=== PATIENT | female | born 1995 | race Caucasian/White ===

== ENCOUNTER 2017-02-20 21:43 | Emergency (ER) | payer SELFPAY ==
[~2017-02-20] VITALS: Ht 162.6 cm; Wt 97.0 kg
[2017-02-20 21:54] VITALS: Ht 162.6 cm; Wt 97.0 kg
[2017-02-20] MEDS ORDERED: LIDOCAINE 2% (MDV) 20 ML INJ INJ ONE (23:30)
[2017-02-20] MEDS ORDERED: CEFTRIAXONE 1 GM INJ IM ONE (23:30)
[2017-02-20] MEDS ORDERED: CEPH-443 PO (23:30)
[2017-02-20] MEDS ORDERED: IBUP-1542 PO (23:31)
[2017-02-20] MEDS ORDERED: SULF1TAB31 PO (23:31)
--- NOTE | 2017-02-20 23:41 | ERD ---
ER Documentation Chief Complaint Chief Complaint abscess right lower abdomen HPI This is a 21-year-old female presents to the ER with a red and warm bump to her right lower abdomen that started 2 days ago. Patient states that area is very painful and earlier today there was some pus coming out of it. Patient does not have any fevers or chills. She does not have any cough or cold symptoms she does not have any nausea vomiting or diarrhea. ROS 12 point review of systems was done, all negative except per HPI. Medications Home Meds Active Scripts Ibuprofen* (Motrin*) 600 Mg Tab, 600 MG PO Q6, #30 TAB Prov:TONYMARIANGEL C 02/20/17 Sulfamethoxazole/Trimethoprim* (Bactrim Ds* Tablet) 1 Each Tablet, 1 TAB PO BID for 7 Days, #14 TAB Prov:TONY,MARIANGEL C 02/20/17 Cephalexin* (Keflex*) 500 Mg Capsule, 500 MG PO BID for 7 Days, CAP Prov:TONY,MARIANGEL C 02/20/17 Allergies Allergies: Coded Allergies: No Known Allergy (Unverified , 02/20/17) PMhx/Soc Medical and Surgical Hx: pt denies Medical Hx, pt denies Surgical Hx Hx Alcohol Use: No Hx Substance Use: No Hx Tobacco Use: No Smoking Status: Never smoker Physical Exam Vitals Vital Signs Date Time Temp Pulse Resp B/P Pulse Ox O2 Delivery O2 Flow Rate FiO2 02/20/17 21:54 98.4 107 20 136/66 97 Physical Exam GENERAL: The patient is well developed and appropriate for usual state of health , in no apparent distress. HEENT: Atraumatic. CHEST: Clear to auscultation bilaterally. There are no rales, wheezes or rhonchi. HEART: Regular rate and rhythm. No murmurs, clicks, rubs or gallops. ABDOMEN: Soft, nontender and nondistended. Good bowel sounds. No rebound or guarding. No gross peritonitis. No gross organomegaly or masses. No Aly sign or McBurney point tenderness. NEURO: Alert and oriented. SKIN: Patient has an indurated area of erythema and warmth to the touch right lower abdomen which is about 5 cm x 6 cm. Results 24 hrs Current Medications Medications (Trade) Dose Ordered Sig/Nuvia Route PRN Reason Start Time Stop Time Status Last Admin Dose Admin Ceftriaxone Sodium (Rocephin) 1 gm ONCE ONCE IM 02/20/17 23:30 02/20/17 23:31 DC 02/20/17 23:30 Lidocaine (Xylocaine 2% (Mdv) 20 ml) 20 ml ONCE ONCE INJ 02/20/17 23:30 02/20/17 23:31 DC 02/20/17 23:30 Procedures/MDM This is a 21-year-old female presents to the ER with an abscess, patient does have surrounding erythema likely cellulitis. Patient will be sent home with Keflex and with Bactrim. At this time I&D is not indicated as area is not fluctuant. Patient was also given a shot of Rocephin in the ER without any complications. She did follow-up with her PCP within 1-2 days return to ER sooner if symptoms worsen. My medical decision making sure with the patient she understands and agrees with plan Departure Diagnosis: Primary Impression: Cellulitis Condition: Stable Patient Instructions: Cellulitis Additional Instructions: Call your primary care doctor TOMORROW for an appointment during the next 1-2 days.See the doctor sooner or return here if your condition worsens before your appointment time. MARIANGEL JIMENEZ Feb 20, 2017 23:41
[2017-02-20 23:54] VITALS: BP 127/68; PULSE 95; RESP 17; TEMP 97.8
== END 2017-02-20 23:54 | disposition home or self-care (01) ==
LOC: FTE 21:43 → EDBD 21:43 → FTE 23:54
DX: L03.311 Cellulitis of abdominal wall (principal)
CPT/HCPCS: 96372; 99284; J0696

== ENCOUNTER 2017-02-22 19:43 | Emergency (ER) | payer SELFPAY ==
[~2017-02-22] VITALS: Ht 162.6 cm; Wt 98.5 kg
[~2017-02-22 19:43] MED LIST: CEPH-443 PO; IBUP-1542 PO; SULF1TAB31 PO
[2017-02-22 19:46] VITALS: Ht 162.6 cm; Wt 98.5 kg
[2017-02-22] MEDS ORDERED: LIDOCAINE 1% (MDV) 20 ML INJ SC ONE (20:30)
--- NOTE | 2017-02-22 20:40 | ERD ---
ER Documentation Chief Complaint Chief Complaint wound check abd area, abscess on abd area HPI 21-year-old female presents to emergency department for complaints of a bump in the abdominal area, was diagnosed to have a soft tissue abscess in the lower abdomen, started on antibiotics 2 days ago, patient started taking Keflex and Bactrim at home, continues to have redness and swelling. Patient is complaining of pain throbbing pain, 6/10 scale, as was upon touching the area. Patient did not take any medications to help with symptoms. Patient denies any fever or chills. ROS All systems reviewed and are negative except as per history of present illness. Medications Home Meds Active Scripts Ibuprofen* (Motrin*) 600 Mg Tab, 600 MG PO Q6, #30 TAB Prov:TONY,MARIANGEL C 02/20/17 Sulfamethoxazole/Trimethoprim* (Bactrim Ds* Tablet) 1 Each Tablet, 1 TAB PO BID for 7 Days, #14 TAB Prov:TONYMARIANGEL C 02/20/17 Cephalexin* (Keflex*) 500 Mg Capsule, 500 MG PO BID for 7 Days, CAP Prov:TONYMARIANGEL C 02/20/17 Allergies Allergies: Coded Allergies: No Known Allergy (Unverified , 02/20/17) PMhx/Soc Medical and Surgical Hx: pt denies Medical Hx, pt denies Surgical Hx Hx Alcohol Use: No Hx Substance Use: No Hx Tobacco Use: No FmHx Family History: No coronary disease, No diabetes, No other Physical Exam Vitals Vital Signs Date Time Temp Pulse Resp B/P Pulse Ox O2 Delivery O2 Flow Rate FiO2 02/22/17 19:46 97.7 88 20 121/69 99 Physical Exam GENERAL: The patient is well developed and appropriate for usual state of health, in no apparent distress. CHEST: Clear to auscultation bilaterally. There are no rales, wheezes or rhonchi. HEART: Regular rate and rhythm. No murmurs, clicks, rubs or gallops. No S3 or S4. ABDOMEN: Soft, nontender and nondistended. Good bowel sounds. No rebound or guarding. No gross peritonitis. No gross organomegaly or masses. No Aly sign or McBurney point tenderness. BACK: No midline or flank tenderness. EXTREMITIES: Equal pulses bilaterally. There is no peripheral clubbing, cyanosis or edema. No focal swelling or erythema. Full range of motion. Grossly neurovascularly intact. NEURO: Alert and oriented. Cranial nerves 2-12 intact. Motor strength in all 4 extremities with 5/5 strength. Sensation grossly intact. Normal speech and gait. SKIN: Noted 3 cm diameter erythematous area, tender on palpation, fluctuant. There is no apparent rash or petechia. The skin is warm and dry. HEMATOLOGIC AND LYMPHATIC: There is no evidence of excessive bruising or lymphedema. No gross cervical, axillary, or inguinal lymphadenopathy. Results 24 hrs Current Medications Medications (Trade) Dose Ordered Sig/Nuvia Route PRN Reason Start Time Stop Time Status Last Admin Dose Admin Lidocaine (Xylocaine 1% (Mdv) 20 ml) 2 ml ONCE ONCE SC 02/22/17 20:30 02/22/17 20:31 DC Procedures/MDM Procedure Note: After obtaining informed consent, the wound was irrigated with 250 ml of normal saline and cleaned with diluted betadine. Using aseptic technique, 3 ml of 1% lidocaine was injected on the subcutaneous tissue of the abscess where the fluctuant area is at. After the anesthetic, a 2 cm incision was done in the middle of the fluctuant area of the abscess. Pustular discharge was drained from the abscess. The abscess wound was loosely packed with iodoform dressing. After the procedure, dry dressing was applied on the area. Patient tolerated procedure well. Decision making: Patient symptoms was likely is consistent with soft tissue abscess, this was drained, incision and drainage was done. Patient is already currently on antibiotics, was advised to continue taking it, patient was advised to return in 48 hours for recheck and wound dressing change. Patient was advised to return sooner for any worsening symptoms. Disposition: Home. Stable Departure Diagnosis: Primary Impression: Soft tissue abscess Condition: Stable Patient Instructions: Abscess, Incision And Drainage JYOTHI HATCH NP Feb 22, 2017 20:40
== END 2017-02-22 21:28 | disposition home or self-care (01) ==
LOC: FTE 19:43
DX: L02.211 Cutaneous abscess of abdominal wall (principal)

== ENCOUNTER 2017-02-24 09:02 | Emergency (ER) | payer SELFPAY ==
[~2017-02-24] VITALS: Ht 160 cm; Wt 99.5 kg
[2017-02-24 09:04] VITALS: Ht 160 cm; Wt 99.5 kg
--- NOTE | 2017-02-24 09:35 | ERD ---
ER Documentation Chief Complaint Chief Complaint wound check right lower abdomen (packing inplace) HPI This is a 21-year-old female who presents the emergency department today for a wound check on an abscess that she had drained a couple of days ago. Patient states that she is taking her antibiotics as prescribed. Denies any fevers or chills. ROS All systems reviewed and are negative except as per history of present illness. Medications Home Meds Active Scripts Ibuprofen* (Motrin*) 600 Mg Tab, 600 MG PO Q6, #30 TAB Prov:MARIANGEL JIMENEZ 02/20/17 Sulfamethoxazole/Trimethoprim* (Bactrim Ds* Tablet) 1 Each Tablet, 1 TAB PO BID for 7 Days, #14 TAB Prov:MARIANGEL JIMENEZ 02/20/17 Cephalexin* (Keflex*) 500 Mg Capsule, 500 MG PO BID for 7 Days, CAP Prov:TONY,MARIANGEL C 02/20/17 Allergies Allergies: Coded Allergies: No Known Allergy (Unverified , 02/24/17) PMhx/Soc Medical and Surgical Hx: pt denies Medical Hx, pt denies Surgical Hx Hx Alcohol Use: No Hx Substance Use: No Hx Tobacco Use: No Smoking Status: Never smoker Physical Exam Vitals Vital Signs Date Time Temp Pulse Resp B/P Pulse Ox O2 Delivery O2 Flow Rate FiO2 02/24/17 09:04 97.8 88 18 132/62 97 Physical Exam Const: obese, NAD Head: Atraumatic Eyes: Normal Conjunctiva ENT: Normal External Ears, Nose and Mouth. Neck: Full range of motion..~ No meningismus. Resp: Clear to auscultation bilaterally Cardio: Regular rate and rhythm, no murmurs Abd: Soft, non tender, non distended. Normal bowel sounds. Evidence of I&D incision right side abdomen on pannus. No erythema or warmth. No purulent drainage Skin: Evidence of I&D incision right side abdomen on pannus Back: No midline or flank tenderness Ext: No cyanosis, or edema Neur: Awake and alert Psych: Normal Mood and Affect Procedures/MDM This is a 21-year-old female who presents the emergency department today for wound check of an abscess she had drained a couple of days ago. Upon review of patient's medical records patient was seen here in the emergency department on February 20, 2017 was diagnosed with cellulitis. She was given antibiotics at that time. Patient return for a recheck on 22 February and had an incision and drainage at that time. Patient now returns in follow-up for a wound check. Wound packing was in place and wound packing was removed. The area of the abscess and drainage was fairly deep and therefore I did replace wound packing today. Patient was instructed to continue taking her antibiotics as prescribed. There is no erythema or warmth or purulent drainage. Low suspicion for sepsis, deep space tracking infection. She may return to the emergency department in 48 hours for another wound check and packing removal. Patient understood and agreed with the plan. She may continue take Tylenol or Motrin for pain. At this time the patient is stable for discharge and outpatient management. Patient should follow up with their PCP in the next 1-2 days. They may return to the emergency department sooner for any persistent or worsening of symptoms. Patient understood and agreed with the plan. Departure Diagnosis: Primary Impression: Encounter for wound re-check Condition: Fair Patient Instructions: Wound Care, Wound Packing Referrals: [facility] YOU HAVE RECEIVED A MEDICAL SCREENING EXAM AND THE RESULTS INDICATE THAT YOU DO NOT HAVE A CONDITION THAT REQUIRES URGENT TREATMENT IN THE EMERGENCY DEPARTMENT. FURTHER EVALUATION AND TREATMENT OF YOUR CONDITION CAN WAIT UNTIL YOU ARE SEEN IN YOUR DOCTORS OFFICE WITHIN THE NEXT 1-2 DAYS. IT IS YOUR RESPONSIBILITY TO MAKE AN APPOINTMENT FOR FOLOW-UP CARE. IF YOU HAVE A PRIMARY DOCTOR --you should call your primary doctor and schedule an appointment IF YOU DO NOT HAVE A PRIMARY DOCTOR YOU CAN CALL OUR PHYSICIAN REFERRAL HOTLINE AT IF YOU CAN NOT AFFORD TO SEE A PHYSICIAN YOU CAN CHOSE FROM THE FOLLOWING [facility] [address] [facility] [address] [facility]. [facility] [address] [facility] [address] [facility] [address] [facility]. [facility]. [address] Additional Instructions: Call your primary care doctor TOMORROW for an appointment during the next 1-2 days.See the doctor sooner or return here if your condition worsens before your appointment time. Keep wound clean and dry. Return in 48 hours for wound check and packing removal. Continue taking her antibiotics as prescribed. SALENA AL PA-C Feb 24, 2017 09:35
== END 2017-02-24 09:42 | disposition home or self-care (01) ==
LOC: FTE 09:02
DX: Z48.01 Encounter for change or removal of surgical wound dressing (principal)
CPT/HCPCS: 99281

== ENCOUNTER → 2018-02-20 | Outpatient (CLI) | END | disposition home or self-care (01) ==

== ENCOUNTER → 2018-02-24 | Outpatient (CLI) | END | disposition home or self-care (01) ==

== ENCOUNTER 2018-08-20 16:49 | Inpatient (IN) | payer MEDICAID ==
[~2018-08-20] VITALS: Ht 160 cm; Wt 111.5 kg
[2018-08-20 17:41] VITALS: Ht 160 cm; Wt 111.5 kg
[2018-08-20] MEDS ORDERED: LACTATED RINGER'S 1,000 ML IV PRN (18:23)
[2018-08-20] MEDS ORDERED: MINERAL OIL LIGHT 10 ML VIAL TOP PRN (18:30)
[2018-08-20] MEDS ORDERED: LIDOCAINE 1% (MPF) 30 ML INJ INJ PRN (18:30)
[2018-08-20] MEDS ORDERED: OXYTOCIN 30 UNITS/LR 500 ML IV PRN (18:30)
[2018-08-20] MEDS ORDERED: OXYTOCIN 30 UNITS/LR 500 ML IV SCH ×3 (18:30)
[2018-08-20] MEDS ORDERED: BUTORPHANOL 2 MG INJ IV PRN (18:30)
[2018-08-20] MEDS ORDERED: METHYLERGONOVINE 0.2 MG INJ IM PRN (18:30)
[2018-08-20] MEDS ORDERED: IBUPROFEN 600 MG TAB PO PRN (18:30)
[2018-08-20] MEDS ORDERED: MISOPROSTOL 200 MCG TAB PR PRN (18:30)
[2018-08-20] MEDS ORDERED: CARBOPROST 250 MCG INJ IM PRN (18:30)
[2018-08-20] MEDS: LACTATED RINGER'S 1,000 ML IV SCH ×2 (19:12→21:43)
--- NOTE | 2018-08-20 19:34 | TRIAGE ---
OB Triage Datetime Report Generated by CPN: 08/20/2018 19:33 Datetime: 08/20/2018 18:13 Decelerations: Variable Category: Category II Comments: Variable noted lasting 60 seconds with evangelist to 80 returning to baseline with moderate va riability Datetime: 08/20/2018 18:00 Labor Evaluation Frequency: OCC Monitor Mode: External Quality: Mild Pattern: Normal: <= 5 Contractions in 10 Minutes Resting Tone [place]: Relaxed Heart Rate FHR Baseline Rate: 155 Monitor Mode: External US FHR Baseline Changes: No Baseline Change Variability: Minimal - Undetectable to <=5 bpm Accelerations: 15X15 Decelerations: None Category: Category II Pain Assessment Pain Presence: None/Denies Datetime: 08/20/2018 17:05 Labor Evaluation Frequency: OCC Monitor Mode: External Quality: Mild Pattern: Normal: <= 5 Contractions in 10 Minutes Resting Tone [place]: Relaxed Heart Rate FHR Baseline Rate: 145 Monitor Mode: External US FHR Baseline Changes: No Baseline Change Variability: Minimal - Undetectable to <=5 bpm Accelerations: 15X15 Decelerations: None Category: Category II Pain Assessment Pain Presence: None/Denies Datetime: 08/20/2018 16:50 Stage of : OB Triage Assessment Type: Triage Maternal Assessment Level of Consciousness: Fully Conscious DTR's/Clonus: DTRs 2+; No Clonus Headache: Denies Blurred Vision: No Respiratory Effort: Unlabored; Regular Rhythm; Equal Expansion Breath Sounds, Left: Clear and Equal Breath Sounds, Right: Clear and Equal Nausea/Vomiting: Denies RUQ Epigastric Pain: Denies Lower Extremities Edema: Bilateral Lower Extremities Degree: 1+ Upper Extremities Edema: Bilateral Upper Extremities Degree: 1+ Facial Edema: None Fall Risk Assessment History of Falling: (0) No Secondary Diagnosis: (0) No Ambulatory Aid: (0) Bedrest/Nurse Assist IV Therapy: (0) No Gait: (0) Normal/Bedrest/Immobile Mental Status: (0) Oriented to Own Ability Fall Score: 0 Fall Risk Score Definition: No Risk: No action required Datetime: 08/20/2018 10:23 Time of Arrival: 08/20/2018 16:35 EGA: 37.6 Arrived By: Ambulatory Arrived From: Office Chief Complaint: r/o PIH Movement: Present Contractions: Denies/Absent Rupture of Membranes: Denies Vaginal Bleeding: Normal Show Vaginal Discharge: Denies Recent Sexual Intercouse: Denies Abdominal Trauma: Not Applicable Patient Complaints: None Time Provider Notified: 08/20/2018 18:17 Provider Notified: Doc Initial Plan: NST, BPP/EFW, PIH labs
[2018-08-20] MEDS ORDERED: TERBUTALINE 1 MG/ML INJ SC ONE (21:30)
[2018-08-21] MEDS: LACTATED RINGER'S 1,000 ML IV SCH ×2 (05:49→14:00)
--- NOTE | 2018-08-21 14:19 | HP ---
Date/Time of Note Date/Time of Note DATE: 08/21/18 TIME: 14:15 OB - History Hx of Present Free Text/Dictation 22-year-old female 2 para 0 AB 137+ weeks gestation admitted after observation of variable deceleration of heart tones Originally patient was sent in to rule out -induced hypertension which apparently was ruled out Last Menstrual Period: Oct 12, 2017 Estimated Due Date: September 04, 2018 : 2 Para: 0 Spontaneous : 1 Care: Good Care Ultrasounds: Normal mid trimester US Obstetrical Complications: None Medical Complications: None Past Family/Social History * Past Medical, Surgical, Family and Obstetric Histories reviewed from chart. Blood Type: O+ Rubella: immune RPR/VDRL: Negative GBS Status: Negative HBsAG: Negative OB Admission Exam Physical Exam HEENT: WNL Heart: Rhythm Normal Lungs: Clear, Equal Abdomen: WNL Extremities: Normal Reflexes: Normal Cervical Dilatation: Fingertip Effacement: 50% Station: -3 Membranes: Intact Accelerations: Accelerations Present Decelerations: No Decelerations Contractions on Admission: 6-10 Minutes Apart Date/Time Contractions Began: ? Frequency of Contractions: ? Duration: ? Last 72 hours Lab Results CBC & BMP 08/20/18 17:56 Liver Function Test 08/20/18 17:56 Alanine Aminotransferase (ALT/SGPT) 15 Albumin 3.5 Alkaline Phosphatase 176 H Aspartate Amino Transf (AST/SGOT) 20 Direct Bilirubin 0.00 Total Protein 6.7 OB Assessment/Plan Other Assessment: Term gestation Variable decelerations of heart tones Other plan: Originally patient was admitted for contraction stress test Upon reexamination patient appears to be 5 to 6 cm JADEN JENSEN MD Aug 21, 2018 14:19
[2018-08-21] MEDS ORDERED: KETOROLAC 30 MG INJ IM STA (16:24)
--- NOTE | 2018-08-21 16:47 | LDN ---
Date/Time of Note Date/Time of Note DATE: 08/21/18 TIME: 16:45 Delivery Summary Normal spontaneous vaginal delivery of viable infant over intact perineum Weeks of Gestation 38-week weeks Placenta Delivered: Spontaneously, Intact & Complete Meconium: none, Light Episiotomy: No Perineal laceration: 2 Laceration repair: Second-degree perineal laceration was repaired in layers using 2-0 Vicryl I&D for the years and 2 chromic on superficial the Anesthesia type: Local Estimated blood loss: 300 Sponge & Needle done & correct: Yes All needle counts correct: Yes Any foreign bodies felt in the: No Infant Delivery Information Sex Infant Sex: female Apgars 1 Minute: 9 5 Minute: 9 Suctioning Nose & mouth suctioned at aydin: Yes Delee suction performed: No Umbilical Cord Umbilical cord with: 3 Vessels Cord presentations: no nuchal cord Cord Blood was obtained: Yes Mother & Baby Disposition Disposition Mom & Baby to Maternity; Good: Yes (Mother and baby were recovered in good condition) Mom transferred to: Other (Maternity) Baby to NICU: No JADEN JENSEN MD Aug 21, 2018 16:47
[2018-08-21 18:15] VITALS: BP 147/79; PULSE 73; RESP 18
[2018-08-21] MEDS: LACTATED RINGER'S 1,000 ML IV* SCH ×2 (18:25→20:37)
[2018-08-21] MEDS ORDERED: MISOPROSTOL 200 MCG TAB PR PRN (18:30)
[2018-08-21] MEDS ORDERED: METHYLERGONOVINE 0.2 MG INJ IM PRN (18:30)
[2018-08-21] MEDS ORDERED: OXYTOCIN 30 UNITS/LR 500 ML IV PRN (18:30)
[2018-08-21] MEDS ORDERED: HYDROCODONE/APAP (5/325) TAB PO PRN (18:30)
[2018-08-21] MEDS ORDERED: ZOLPIDEM 5 MG TAB PO PRN (18:30)
[2018-08-21] MEDS ORDERED: BENZOCAINE 20% 56 ML SPRAY TOP PRN (18:30)
[2018-08-21] MEDS ORDERED: WITCH HAZEL/GLYCERIN PAD PR PRN (18:30)
[2018-08-21] MEDS ORDERED: LANOLIN HPA 1 PKT TOP PRN (18:30)
[2018-08-21] MEDS ORDERED: CARBOPROST 250 MCG INJ IM PRN (18:30)
[2018-08-21] MEDS ORDERED: DIBUCAINE 1% 30 GM OINT TOP PRN (18:30)
[2018-08-21 18:41] VITALS: BP 146/82; PULSE 72; RESP 18
[2018-08-21 19:45] VITALS: BP 138/79; PULSE 73; RESP 18
[2018-08-21] MEDS: MAGNESIUM HYDROXIDE 30ML CUP PO SCH (20:33)
[2018-08-21] MEDS: SENNA/DOCUSATE NA (8.6MG/50MG) TAB PO SCH (20:33)
[2018-08-21] MEDS: HYDROCODONE/APAP (5/325) TAB PO PRN (20:33)
[2018-08-21 23:28] VITALS: BP 131/78; PULSE 103; RESP 18
[2018-08-21] MEDS: IBUPROFEN 600 MG TAB PO SCH (23:29)
[2018-08-22 03:49] VITALS: BP 128/74; PULSE 102; RESP 18
[2018-08-22] MEDS: IBUPROFEN 600 MG TAB PO SCH ×3 (05:29→18:16)
[2018-08-22 09:00] VITALS: BP 128/72; PULSE 110; RESP 18
[2018-08-22] MEDS: MAGNESIUM HYDROXIDE 30ML CUP PO SCH ×2 (09:00→21:12)
[2018-08-22] MEDS: SENNA/DOCUSATE NA (8.6MG/50MG) TAB PO SCH ×2 (10:06→21:12)
[2018-08-22] MEDS: HYDROCODONE/APAP (5/325) TAB PO PRN ×2 (10:06→11:51)
--- NOTE | 2018-08-22 11:13 | DS ---
Date/Time of Note Date/Time of Note Home today or next day DATE: 08/22/18 TIME: 11:12 Obstetrical Discharge Record Final Diagnosis Final Diagnosis: Term delivered Other Final Diagnosis Status post vaginal delivery Vaginal Delivery Obstetrical Delivery: Spontaneous, Laceration, Repaired Complications Augmentation: Yes Condition on Discharge Physical Assessment Last Vitals: See nurse's notes Voiding: Yes Bowel Movement: Yes Breast: Soft, non-tender, Filling Fundus: Firm Abdomen and Incision: Abdomen is soft with firm fundus Episiotomy: Perineum is healing well and appears clean Calf Tenderness: No Patient Condition: Good JADEN JENSEN MD Aug 22, 2018 11:13
--- NOTE | 2018-08-22 11:14 | PD.PPDC ---
[employer] OPERATOR Discharge Instruction Provider Information Physician Information 22-year-old female that vaginal delivery Diagnosis [id number] Final Diagnosis: Rshbo1m Status post vaginal delivery Condition Uighr9Ll Patient Condition: [id number] Good Diet [id number] Diet: Daryq1o Resume Regular Diet Activity/Restrictions Bchhn2Ul Activity: Vhohb5h Normal Activity May Shower [id number] Restrictions: Mojmi6e Nothing in the Vagina [id number] Return to Work or School: Edumy5x Oct 12, 2018 Follow-up Follow-up with Physician: 2, 4, Week/Weeks (In clinic for follow-up) Return to clinic for Hljwq6We OB Instructions: Rxvfr6e Breast Tenderness Depression Comment: Pelvic rest for 6 weeks JADEN JENSEN MD Aug 22, 2018 11:14
[2018-08-22] MEDS ORDERED: IBUP-1542 PO (11:15)
[2018-08-22 12:00] VITALS: BP 126/74; PULSE 111; RESP 18
[2018-08-22 15:49] VITALS: BP 129/70; PULSE 98; RESP 20
[2018-08-22 19:40] VITALS: BP 130/76; PULSE 98; RESP 18
[2018-08-23] MEDS: IBUPROFEN 600 MG TAB PO SCH ×3 (00:13→11:20)
[2018-08-23 04:35] VITALS: BP 118/71; PULSE 92; RESP 16
[2018-08-23 08:00] VITALS: BP 122/86; RESP 18
[2018-08-23] MEDS: MAGNESIUM HYDROXIDE 30ML CUP PO SCH (09:00)
[2018-08-23] MEDS ORDERED: VARICELLA VACCINE LIVE/PF 1,350 UNIT/0.5 ML ML SC* ONE (09:00)
[2018-08-23] MEDS ORDERED: DIPHTH/TET/ACEL PERTUSS (ADULT) 0.5 ML VIAL IM* ONE (09:00)
[2018-08-23] MEDS ORDERED: MEASLES,MUMPS,RUBELLA VACCINE INJ SC* ONE (09:00)
[2018-08-23] MEDS: SENNA/DOCUSATE NA (8.6MG/50MG) TAB PO SCH (09:01)
--- NOTE | 2018-08-24 13:54 | DELSUM ---
Delivery Summary A-C Datetime Report Generated by CPN: 08/24/2018 13:53 DELIVERY PERSONNEL [place]: [place], [place] MATERNAL INFORMATION Delivery Anesthesia: Local Medications in Delivery: pitocin, toradol 30mg Delivery QBL (ml): 300 Placenta Cultured: No Maternal Complications: None Other Maternal Complications: pih LABOR SUMMARY EDC: 09/04/2018 00:00 No. Babies in Womb: 1 Attempted: No Labor Anesthesia: None LABOR INFORMATION Reason for Induction: Gest. HTN/PreEclam/Eclamp Onset of Labor: 08/21/2018 10:00 Complete Dilatation: 08/21/2018 16:01 Oxytocin: Induction Group B Beta Strep: Negative Antibiotics # of Doses: 0 Steroids Given: None Reason Steroids Not Administered: Not Applicable MEMBRANES Membranes Rupture Method: Artificial Rupture of Membranes: 08/21/2018 13:34 Length of Rupture (hr): 2.73 Amniotic Fluid Color: Clear Amniotic Fluid Amount: Small Amniotic Fluid Odor: None STAGES OF LABOR Stage 1 hr: 6 Stage 1 min: 1 Stage 2 hr: 0 Stage 2 min: 17 Stage 3 hr: 0 Stage 3 min: 3 Total Time in Labor hr: 6 Total Time in Labor min: 21 VAGINAL DELIVERY Episiotomy: None Laceration Extension: Second Degree Laceration Type: Perineal Laceration Repair: Yes Initial Vag Sponge Count: 10 Final Vag Sponge Count: 10 Initial Vag Sharps Count: 1 Final Vag Sharps Count: 3 Sponge Count Correct: Yes Sharps Count Correct: Yes Count Comment: 2 SHARPS ADDED BABY A INFORMATION Infant Delivery Date/Time: 08/21/2018 16:18 Method of Delivery: Vaginal Born in Route : No : N/A Forceps: N/A Vacuum Extraction: N/A Shoulder Dystocia : No SHOULDER DYSTOCIA BABY A Delivery Date/Time: 08/21/2018 16:18 PRESENTATION/POSITION BABY A Presentation: Cephalic Cephalic Presentation: Vertex Vertex Position: Left Occipital Anterior Breech Presentation: N/A PLACENTA INFORMATION BABY A Placenta Delivery Time : 08/21/2018 16:21 Placenta Method of Delivery: Spontaneous Placenta Status: Delivered SCORES BABY A Heart Rate 1 min: >100 bpm Resp Effort 1 min: Good Cry Reflex Irritability 1 min: Cough/Sneeze/Pulls Away Muscle Tone 1 min: Active Motion Color 1 min: Body [place], Extremit Blue Resuscitation Effort 1 min: Tactile Stimulation SCORE 1 MIN: 9 Heart Rate 5 min: >100 bpm Resp Effort 5 min: Good Cry Reflex Irritability 5 min: Cough/Sneeze/Pulls Away Muscle Tone 5 min: Active Motion Color 5 min: Body [place], Extremit Blue SCORE 5 MIN: 9 INFANT INFORMATION BABY A Gestational Age at Delivery: 38.0 Gestational Status: Early Term- 37- 38.6 Weeks Infant Outcome : Liveborn Infant Condition : Stable Infant Sex: Female IDENTIFICATION/MEDS BABY A ID Band Number: [id number] Sensor Number: [id number] WEIGHT/LENGTH BABY A Birthweight (gm): 3105 Weight (lb): 6 Infant Weight (oz): 14 Infant Length (in): 19.50 Infant Length (cm): 49.53 CORD INFORMATION BABY A No. Cord Vessels: 3 Nuchal Cord : N/A Cord Blood Taken: Yes Suction: Mouth; Nose ASSESSMENT BABY A Infant Complications: None Physical Findings at Delivery: Within Normal Limits Respirations: Appears Normal Home Care Associate/ALS Called : No Care By: MAEVE FLOWERS Transferred To: Remains with Mother
--- NOTE | 2018-08-24 22:59 | NSTRPT ---
NST Information Datetime Report Generated by CPN: 08/24/2018 22:59 Datetime: 08/20/2018 10:18 NST Information EGA: 37.6 Test Number: 3 Time on Monitor: 08/20/2018 11:03 Time off Monitor: 08/20/2018 11:26 NST Duration (Min): 23 Reason for NST: Other Reason for NST Other: Small VSD Test and Monitor Explained: Monitor Explained; Test Explained; Verbalized Understanding Pulse: 92 Resp: 18 SBP: 117 DBP: 77 Test Evaluation NST Interventions: None Patient States Movement: Present Contraction Frequency: none FHR Baseline : 145 Variability: Moderate 6-25bpm Accelerations: 15X15 Decelerations: None FHR Category: Category I NST Results: Reactive Comments: To Perinatology CEPHALIC, ELMO 9.1 CM , EFW 3315 GM, consistant with dates, 57% for GA AC = 70% small VSD 3mm Electronically Signed By E-Signature: with User ID: [id number] Datetime: 08/18/2018 13:00 NST Information EGA: 37.4 NST Duration (Min): 49 Datetime: 08/14/2018 14:05 NST Information EGA: 37.0 NST Duration (Min): 85
== END 2018-08-23 13:30 | disposition home or self-care (01) | DRG 807 ==
LOC: OBT 16:49 → L-D 16:50 → OBT 18:20 → L-D 18:20 → PP1 08-21 18:18
PROVIDERS: ADMIT Obstetrics & Gynecology; ATTEND Obstetrics & Gynecology
PROC: 10E0XZZ Delivery of Products of Conception, External Approach (ICD-10-PCS; principal; 2018-08-21)
PROC: 0KQM0ZZ Repair Perineum Muscle, Open Approach (ICD-10-PCS; 2018-08-21)
DX: O76 Abnormality in fetal heart rate and rhythm complicating labor and delivery (principal); Z37.0 Single live birth; O77.0 Labor and delivery complicated by meconium in amniotic fluid; O70.1 Second degree perineal laceration during delivery; Z3A.37 37 weeks gestation of pregnancy
CPT/HCPCS: 76815; 76818; 80053; 81001; 84560; 85025; 85610; 85730; 86592; 86900; 86901; 87340; 90716; G0463; J1885; J2590; J3105; J7120